=== PATIENT | female | born 1990 | race Caucasian/White ===

== ENCOUNTER → 2016-07-09 | Outpatient (CLI) | payer BC, OTHER ==
--- NOTE | 2016-07-09 13:55 | US ---
EXAMINATION TYPE: US transvaginal DATE OF EXAM: 07/09/2016 12:41 PM COMPARISON: Prior pelvic ultrasound June 12, 2015 CLINICAL HISTORY: Pelvic Pain R10.2. RLQ pain x 1.5 months since egg retrieval for donor egg procedur e (has had 3 done); TECHNIQUE: Transvaginal (TV) Date of LMP: 07/01/2016 EXAM MEASUREMENTS: Uterus: 7.3cm Endometrial Stripe: 0.6 cm Right Ovary: 4.0 x 2.5 x 2.3 cm Left Ovary: 4.0 x 2.1 x 2.3 cm 1. Uterus: Anteverted wnl 2. Endometrium: IUD noted mid upper location to TOMMIE and thickness is wnl for Day 8 LMP 3. Right Ovary: multiple follicles with largest as complex cyst = 1.7 x 1.6 x 1.3cm 4. Left Ovary: multiple small follicles Spectral, color and waveform Doppler imaging shows good arterial and venous flow within the ovaries ; there is no evidence for ovarian torsion. 5. Bilateral Adnexa: wnl 6. Posterior cul-de-sac: small amount of free fluid is noted = 0.9 x 2.8 x 0.3 x 0.523 = 0.4ml (wnl as is < 10ml). New metallic IUD is slightly lower in position in the lower uterine segment extending into cervix on initial images. Tiny amount of free fluid is seen in the pelvic cul-de-sac on image 11 and 12. Both ovaries are identified. There are scattered peripheral follicles seen throughout both ovaries. W ithin right ovary there is more complex cystic lesion measuring 1.7 x 1.3 x 1.6 cm that has central i rregular hyperechoic material but no suspicious vascularity. IMPRESSION: New central metallic IUD is noted low in position. There is nonspecific small amount of f ree fluid in the pelvic cul-de-sac. There is 1.7 cm nonsimple cyst in the right ovary, probable hemor rhagic cyst, short-term ultrasound follow-up in 6 weeks' time is advised to further evaluate and magaly acterize.
== END | disposition home or self-care (01) ==
LOC: RADUSWWP 12:16
PROVIDERS: ATTEND Family Medicine
DX: N83.201 Unspecified ovarian cyst, right side (principal); Z97.5 Presence of (intrauterine) contraceptive device
CPT/HCPCS: 76830

== ENCOUNTER → 2016-08-03 | Outpatient (CLI) | payer BC, OTHER ==
--- NOTE | 2016-08-03 08:19 | US ---
EXAMINATION TYPE: US abdomen complete DATE OF EXAM: 08/03/2016 7:29 AM COMPARISON: NONE CLINICAL HISTORY: 25-year-old female with right Flank Pain R10.9. TECHNIQUE: Multiple sonographic images of the abdomen were obtained. FINDINGS: Liver Length: 14.7 cm Gallbladder Wall: 0.2 cm CBD: 0.3 cm Spleen: 10.7 cm Right Kidney: 9.0 x 3.8 x 4.3 cm Left Kidney: 9.7 x 4.3 x 4.6 cm Pancreas: Within normal limits. Liver: Normal size with homogeneous echotexture and no focal lesion. Gallbladder: No abnormal gallbladder distention, wall thickening, pericholecystic fluid, or shadowin g calculi. There is a 3 mm nonmobile mural-based echogenic focus along the posterior gallbladder wall probably a small polyp. Evidence for sonographic Boyle's sign: no CBD: Within normal limits. Spleen: Normal size with a 1.4 cm hilar splenule. Right Kidney: no evidence of hydronephrosis. Left Kidney: no evidence of hydronephrosis. Upper IVC: wnl Abd Aorta: wnl IMPRESSION: 1. A 3 mm nonmobile echogenic focus along the posterior gallbladder wall. A tiny gallbladder wall latricia yp is suggested. A 6-12 month follow-up gallbladder ultrasound can reassess. 2. Otherwise, unremarkable sonographic examination of the abdomen.
== END | disposition home or self-care (01) ==
LOC: RADUSWWP 07:01
PROVIDERS: ATTEND Family Medicine
DX: R10.9 Unspecified abdominal pain (principal)
CPT/HCPCS: 76700

== ENCOUNTER → 2016-08-20 | Outpatient (CLI) | payer BC, OTHER ==
--- NOTE | 2016-08-20 10:09 | NM ---
EXAMINATION TYPE: NM hepatobiliary w EF DATE OF EXAM: 08/20/2016 9:30 AM COMPARISON: NONE HISTORY: Right upper quadrant pain TECHNIQUE: After the intravenous administration of 5.3 mCi Tc 99m Mebrofenin hepatobiliary scintigrap hy is performed. Immediate images post injection. FINDINGS: There is satisfactory initial accumulation of tracer by the liver. The gallbladder is visualized wit hin 6 minutes. The small bowel activity is noted within 14 minutes. At one hour 8 ounces of oral en sure plus is given to mimic CCK and gallbladder ejection fraction is calculated at 62 %, in the yasmin l range. Therefore there is no scintigraphic evidence of cystic or common bile duct obstruction to s uggest acute cholecystitis or gallbladder dyskinesia. IMPRESSION: Exam is within normal limits.
== END | disposition home or self-care (01) ==
LOC: RADNMMAIN 07:02
PROVIDERS: ATTEND Family Medicine
DX: R10.11 Right upper quadrant pain (principal)
CPT/HCPCS: 78226; A9537

== ENCOUNTER 2016-12-03 18:49 | Emergency (ER) | payer BC, OTHER ==
[2016-12-03 19:45] LABS: Appearance,Urine Clear (Clear); Bilirubin,Urine Negative (Negative); Glucose,Urine (UA) Negative (Negative); Ketones,Urine Negative (Negative); Leukocyte Esterase,Urine Negative (Negative); Nitrite,Urine Negative (Negative); Protein,Urine Trace (Negative); Specific Gravity,Urine 1.019 (1.001-1.035); UA Billing (MACRO vs. MICRO) CHEM; Urobilinogen,Urine <2.0 mg/dL (<2.0)
--- NOTE | 2016-12-03 20:03 | US ---
EXAMINATION TYPE: US transvaginal DATE OF EXAM: 12/03/2016 COMPARISON: Prior in [facility] CLINICAL HISTORY: Pain. Patient has IUD, could not feel strings. Patient is an egg donor TECHNIQUE: Transvaginal (TV) Date of LMP: Unsure EXAM MEASUREMENTS: Uterus: 7.0 x 3.2 x 4.8 cm Endometrial Stripe: 0.6 cm Right Ovary: 3.7 x 2.1 x 2.1 cm Left Ovary: 3.8 x 2.5 x 2.0 cm 1. Uterus: Anteverted wnl 2. Endometrium: wnl, IUD is visualized in the low position as seen on previous exam 3. Right Ovary: Multiple follicles visualized 4. Left Ovary: Multiple follicles visualized, largest measuring 1.6 x 1.3 x 1.2 cm Spectral, color and waveform doppler imaging shows good arterial and venous flow within the ovaries ; there is no evidence for ovarian torsion. 5. Bilateral Adnexa: wnl 6. Posterior cul-de-sac: wnl IMPRESSION: The IUD is in the mid and lower uterus and not in optimal position.
--- NOTE | 2016-12-03 20:17 | ED ---
Female Urogenital HPI - General Chief complaint: Urogenital Stated complaint: vaginal problems Source: patient Mode of arrival: ambulatory Limitations: no limitations - History of Present Illness Initial comments: Patient is a 25-year-old female who presents for evaluation for "cannot find IUD strings ". Past history as below. Patient states that she's had this IUD in for the past year. Stated that she was having some lower pelvic cramping today while at work. She stated it was uncomfortable for her to sit down. She was having some light vaginal spotting which is not atypical for her. No urinary symptoms. She took a home urine test which was negative. Called her OB and stated that she can't get her in until month and a half from now. She has a history of her IUD falling out. Concerned that the IUD might be in an abnormal position since she has a history of it falling out. Denies any other associated symptoms. She is sexually active and her partner wears protection. She's also on control. Denies fever, chills, headache and changes of vision, URI symptoms, shortness of breath, cough, chest pain, nausea or vomiting, diarrhea, pain or burning with urination. - Related Data Allergies Allergy/AdvReac Type Severity Reaction Status Date / Time No Known Allergies Allergy Verified 12/03/16 18:56 Review of Systems ROS Statement: Those systems with pertinent positive or pertinent negative responses have been documented in the HPI. ROS Other: All systems not noted in ROS Statement are negative. Past Medical History Past Medical History: No Reported History History of Any Multi-Drug Resistant Organisms: None Reported Past Surgical History: No Surgical Hx Reported Past Psychological History: No Psychological Hx Reported Smoking Status: Never smoker Past Alcohol Use History: Occasional Past Drug Use History: None Reported General Exam Limitations: no limitations General appearance: alert, in no apparent distress Head exam: Present: atraumatic, normocephalic, normal inspection Eye exam: Present: normal appearance, PERRL, EOMI. Absent: scleral icterus, conjunctival injection, periorbital swelling ENT exam: Present: normal exam, mucous membranes moist Neck exam: Present: normal inspection. Absent: tenderness, meningismus, lymphadenopathy Respiratory exam: Present: normal lung sounds bilaterally. Absent: respiratory distress, wheezes, rales, rhonchi, stridor Cardiovascular Exam: Present: regular rate, normal rhythm, normal heart sounds. Absent: systolic murmur, diastolic murmur, rubs, gallop, clicks GI/Abdominal exam: Present: soft, normal bowel sounds, other (Abdomen is soft and nontender. No peritoneal signs. Negative McBurney sign. No suprapubic tenderness.). Absent: distended, tenderness, guarding, rebound, rigid Extremities exam: Present: normal inspection, full ROM, normal capillary refill. Absent: tenderness, pedal edema, joint swelling, calf tenderness Back exam: Present: normal inspection Neurological exam: Present: alert, oriented X3, CN II-XII intact Psychiatric exam: Present: normal affect, normal mood Skin exam: Present: warm, dry, intact, normal color. Absent: rash Course Vital Signs 12/03/16 18:54 Temperature 99.5 F Pulse Rate 95 Respiratory 20 Rate Blood Pressure 151/98 O2 Sat by Pulse 100 Oximetry Medical Decision Making - Medical Decision Making Patient is a 25-year-old female resents for evaluation for concern for IUD falling out. Offered pelvic examination which she deferred. We'll order a urinalysis and a transvaginal ultrasound. Does not want anything for pain at this time. 2010: Urinalysis negative for UTI. Ultrasound revealed the IUD in appropriate position. Discussed with the patient. Offered pelvic examination again which she refused. 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 NSAIDs as needed for pain. Discussed specific signs and symptoms on when to return to the emergency department for further evaluation. Worse understanding. Comfortable discharge home and will follow-up. - Lab Data Lab Results 12/03/16 Range/Units 19:25 Urine Color Yellow Urine Appearance Clear (Clear) Urine pH 6.0 (5.0-8.0) Ur Specific [place] 1.019 (1.001-1.035) Urine Protein Trace H (Negative) Urine Glucose (UA) Negative (Negative) Urine Ketones Negative (Negative) Urine Blood Negative (Negative) Urine Nitrite Negative (Negative) Urine Bilirubin Negative (Negative) Urine Urobilinogen <2.0 (<2.0) mg/dL Ur Leukocyte Esterase Negative (Negative) Disposition Clinical Impression: Pelvic pain Disposition: HOME SELF-CARE Condition: Good Instructions: Pelvic Pain in Women (ED) Referrals: Maximino Gonzalez MD [Primary Care Provider] - 1-2 days
[2016-12-03 20:29] VITALS: BP 132/85; PULSE 89; RESP 18; TEMP 98
== END 2016-12-03 20:28 | disposition home or self-care (01) ==
LOC: EC 18:49
DX: R10.2 Pelvic and perineal pain (principal); N92.0 Excessive and frequent menstruation with regular cycle; Z97.5 Presence of (intrauterine) contraceptive device
CPT/HCPCS: 76830; 81003; 93975; 99284

== ENCOUNTER 2020-02-09 10:17 | Emergency (ER) | payer MEDICAID, OTHER ==
[2020-02-09 10:54] LABS: Basophils % (A) 1 %; Eosinophils # (A) 0.1 k/uL (0-0.7); Eosinophils % (A) 2 %; HCT 42.4 % (34.0-46.0); HGB 14.3 gm/dL (11.4-16.0); Lymphocytes # (A) 1.2 k/uL (1.0-4.8); Lymphocytes % (A) 29 %; MCH 32.1 pg (25.0-35.0); MCHC 33.7 g/dL (31.0-37.0); MCV 95.3 fL (80.0-100.0); Mean Platelet Volume 8.3; Monocytes # (A) 0.3 k/uL (0-1.0); Monocytes % (A) 7 %; Neutrophils # (A) 2.4 k/uL (1.3-7.7); Neutrophils % (A) 58 %; Platelet Count 193 k/uL (150-450); RBC 4.45 m/uL (3.80-5.40); RDW 12.3 % (11.5-15.5); WBC 4.1 k/uL (3.8-10.6)
[2020-02-09 11:03] LABS: ALT 36 U/L (4-34); AST 36 U/L (14-36); African American GFR (CKD) >90 (>60 ml/min/1.73 sqM); Albumin 4.6 g/dL (3.5-5.0); Alkaline Phosphatase 50 U/L (38-126); Anion Gap 8 mmol/L; Blood Urea Nitrogen 12 mg/dL (7-17); Calcium 9.5 mg/dL (8.4-10.2); Carbon Dioxide 24 mmol/L (22-30); Chloride 105 mmol/L (98-107); Glucose 90 mg/dL (74-99); Non-African American GFR(CKD) >90 (>60 ml/min/1.73 sqM); Sodium 137 mmol/L (137-145); Total Bilirubin 0.6 mg/dL (0.2-1.3)
[2020-02-09 11:15] LABS: Appearance,Urine Cloudy (Clear); Bacteria,Urine Rare /hpf; Bilirubin,Urine Negative (Negative); Blood,Urine Negative (Negative); Color,Urine Yellow; Glucose,Urine (UA) Negative (Negative); Ketones,Urine Negative (Negative); Leukocyte Esterase,Urine Small (Negative); Mucus,Urine Moderate /hpf; Nitrite,Urine Negative (Negative); Protein,Urine 1+ (Negative); Specific Gravity,Urine 1.029 (1.001-1.035); Squamous Epithelial Cell,Urine 17 /hpf (0-4); Urobilinogen,Urine <2.0 mg/dL (<2.0); WBC,Urine 4 /hpf (0-5)
--- NOTE | 2020-02-09 11:43 | US ---
EXAMINATION TYPE: US transvaginal plus Doppler DATE OF EXAM: 02/09/2020 COMPARISON: 12/03/16 CLINICAL HISTORY: 29-year-old female left inguinal pain. LLQ pain and back pain. Spotting 2 weeks ago , not a normal period. History of egg donor TECHNIQUE: Transvaginal sonographic images of the pelvis were medically necessary to better assess th e anatomy. Color Doppler spectral waveform analysis of the ovarian arteries and veins. Date of LMP: 12/23/2019 FINDINGS: EXAM MEASUREMENTS: Uterus: 8.4 x 5.6 x 3.6 cm Endometrial Stripe: 0.3 cm Right Ovary: 3.5 x 2.6 x 1.9 cm Left Ovary: 4.2 x 2.6 x 2.3 cm 1. Uterus: Anteverted and otherwise wnl 2. Endometrium: wnl, miniscule hypoechoic areas within, possible early hemorrhagic debris 3. Right Ovary: wnl, follicles present 4. Left Ovary: with cyst = 2.9 x 2.1 x 1.8 cm Spectral, color and waveform doppler imaging shows good arterial and venous flow within the ovaries ; there is no evidence for ovarian torsion. 5. Bilateral Adnexa: wnl 6. Posterior cul-de-sac: Mild free fluid IMPRESSION: 1. No sonographic evidence for ovarian torsion. 2. A 2.9 cm dominant follicle or functional cyst in the left ovary. 3. Mild cul-de-sac free fluid likely physiologic.
--- NOTE | 2020-02-09 12:13 | ED ---
General Adult HPI - General Chief complaint: Abdominal Pain Stated complaint: ABD Time Seen by Provider: 02/09/20 10:31 Source: patient, RN notes reviewed, old records reviewed Mode of arrival: ambulatory Limitations: no limitations - History of Present Illness Initial comments: 29-year-old female patient ED for evaluation. Patient reports that she does have history of a lump donation. Left had in November. She reports that last 5 days she has been having some left adnexal discomfort. Reports that she had just very light spotting during her normal time of menses about 2 weeks ago. Denies as she recently took a negative test yesterday. Denies any other complaints. Systemic: Pt denies fatigue, fever/chills, rash. Pt denies weakness, night sweats, weight loss. Neuro: Pt denies headache, visual disturbances, syncope or pre-syncope. HEENT: Pt denies ocular discharge or irritation, otalgia, rhinorrhea, pharyngit is or notable lymphadenopathy. Cardiopulmonary: Pt denies chest pain, SOB, heart palpitations, dyspnea on exertion. Abdominal/GI: Pt denies abdominal pain, n/v/d. : Pt denies dysuria, burning w/ urination, frequency/urgency. Denies new onset urinary or bowel incontinence. MSK: Pt denies myalgia, loss of strength or function in extremities. Neuro: Pt denies new onset weakness, paresthesias. - Related Data Allergies Allergy/AdvReac Type Severity Reaction Status Date / Time No Known Allergies Allergy Verified 02/09/20 10:22 Review of Systems ROS Statement: Those systems with pertinent positive or pertinent negative responses have been documented in the HPI. ROS Other: All systems not noted in ROS Statement are negative. Past Medical History Past Medical History: No Reported History History of Any Multi-Drug Resistant Organisms: None Reported Past Surgical History: No Surgical Hx Reported Additional Past Surgical History / Comment(s): ovum donation x 7 Past Psychological History: No Psychological Hx Reported Smoking Status: Never smoker Past Alcohol Use History: Occasional Past Drug Use History: None Reported General Exam - General Exam Comments Initial Comments: Constitutional: NAD, AOX3, Pt has pleasant affect. HEENT: NC/AT, trachea midline, neck supple, no lymphadenopathy. External ears appear normal, without discharge. Mucous membranes moist. Eyes PERRLA, EOM intact. There is no scleral icterus. No pallor noted. Cardiopulmonary: RRR, no murmurs, rubs or gallops, no JVD noted. Lungs CTAB in anterior and posterior becker. No peripheral edema. Abdominal exam: Abdomen soft and non-distended. Abdomen non-tender to palpation in all 4 quadrants. Left lower adnexal region mildly tender to palpation. Bowel sounds active in LLQ. No hepatosplenomegaly. No ecchymosis Neuro: CN II-XII grossly intact. No nuchal rigidity. MSK: Full active ROM in upper and lower extremities, 5/5 stregnth. Limitations: no limitations Course Vital Signs 02/09/20 02/09/20 10:23 12:30 Temperature 98.1 F 98.2 F Pulse Rate 100 83 Respiratory 18 16 Rate Blood Pressure 150/96 112/65 O2 Sat by Pulse 99 98 Oximetry Medical Decision Making - Medical Decision Making 29-year-old female patient ED for left lower adnexal discomfort. Reports that she does have history of egg donation. Mild tenderness on palpation. Hcg negative, laboratory investigations nonimpressive. US displays no evidence for torsion. 2.9 cm folicle or functional cyst left ovary. Patient is stable for discharge with outpatient follow up and return precautions. Case discussed with Dr. Ortega. - Lab Data Result diagrams: 02/09/20 10:47 02/09/20 10:47 Lab Results 02/09/20 02/09/20 02/09/20 Range/Units 10:38 10:38 10:47 WBC 4.1 (3.8-10.6) k/uL RBC 4.45 (3.80-5.40) m/uL Hgb 14.3 (11.4-16.0) gm/dL Hct 42.4 (34.0-46.0) % MCV 95.3 (80.0-100.0) fL MCH 32.1 (25.0-35.0) pg MCHC 33.7 (31.0-37.0) g/dL RDW 12.3 (11.5-15.5) % Plt Count 193 (150-450) k/uL Neutrophils % 58 % Lymphocytes % 29 % Monocytes % 7 % Eosinophils % 2 % Basophils % 1 % Neutrophils # 2.4 (1.3-7.7) k/uL Lymphocytes # 1.2 (1.0-4.8) k/uL Monocytes # 0.3 (0-1.0) k/uL Eosinophils # 0.1 (0-0.7) k/uL Basophils # 0.0 (0-0.2) k/uL Sodium (137-145) mmol/L Potassium (3.5-5.1) mmol/L Chloride (98-107) mmol/L Carbon Dioxide (22-30) mmol/L Anion Gap mmol/L BUN (7-17) mg/dL Creatinine (0.52-1.04) mg/dL Est GFR (CKD-EPI)AfAm (>60 ml/min/1.73 sqM) Est GFR (CKD-EPI)NonAf (>60 ml/min/1.73 sqM) Glucose (74-99) mg/dL Calcium (8.4-10.2) mg/dL Total Bilirubin (0.2-1.3) mg/dL AST (14-36) U/L ALT (4-34) U/L Alkaline Phosphatase (38-126) U/L Total Protein (6.3-8.2) g/dL Albumin (3.5-5.0) g/dL Lipase (23-300) U/L Urine Color Yellow Urine Appearance Cloudy H (Clear) Urine pH 6.0 (5.0-8.0) Ur Specific [place] 1.029 (1.001-1.035) Urine Protein 1+ H (Negative) Urine Glucose (UA) Negative (Negative) Urine Ketones Negative (Negative) Urine Blood Negative (Negative) Urine Nitrite Negative (Negative) Urine Bilirubin Negative (Negative) Urine Urobilinogen <2.0 (<2.0) mg/dL Ur Leukocyte Esterase Small H (Negative) Urine WBC 4 (0-5) /hpf Ur Squamous Epith Cells 17 H (0-4) /hpf Urine Bacteria Rare H (None) /hpf Urine Mucus Moderate H (None) /hpf Urine HCG, Qual Not Detected (Not Detectd) 02/09/20 Range/Units 10:47 WBC (3.8-10.6) k/uL RBC (3.80-5.40) m/uL Hgb (11.4-16.0) gm/dL Hct (34.0-46.0) % MCV (80.0-100.0) fL MCH (25.0-35.0) pg MCHC (31.0-37.0) g/dL RDW (11.5-15.5) % Plt Count (150-450) k/uL Neutrophils % % Lymphocytes % % Monocytes % % Eosinophils % % Basophils % % Neutrophils # (1.3-7.7) k/uL Lymphocytes # (1.0-4.8) k/uL Monocytes # (0-1.0) k/uL Eosinophils # (0-0.7) k/uL Basophils # (0-0.2) k/uL Sodium 137 (137-145) mmol/L Potassium 4.0 (3.5-5.1) mmol/L Chloride 105 (98-107) mmol/L Carbon Dioxide 24 (22-30) mmol/L Anion Gap 8 mmol/L BUN 12 (7-17) mg/dL Creatinine 0.88 (0.52-1.04) mg/dL Est GFR (CKD-EPI)AfAm >90 (>60 ml/min/1.73 sqM) Est GFR (CKD-EPI)NonAf >90 (>60 ml/min/1.73 sqM) Glucose 90 (74-99) mg/dL Calcium 9.5 (8.4-10.2) mg/dL Total Bilirubin 0.6 (0.2-1.3) mg/dL AST 36 (14-36) U/L ALT 36 H (4-34) U/L Alkaline Phosphatase 50 (38-126) U/L Total Protein 8.0 (6.3-8.2) g/dL Albumin 4.6 (3.5-5.0) g/dL Lipase 150 (23-300) U/L Urine Color Urine Appearance (Clear) Urine pH (5.0-8.0) Ur Specific [place] (1.001-1.035) Urine Protein (Negative) Urine Glucose (UA) (Negative) Urine Ketones (Negative) Urine Blood (Negative) Urine Nitrite (Negative) Urine Bilirubin (Negative) Urine Urobilinogen (<2.0) mg/dL Ur Leukocyte Esterase (Negative) Urine WBC (0-5) /hpf Ur Squamous Epith Cells (0-4) /hpf Urine Bacteria (None) /hpf Urine Mucus (None) /hpf Urine HCG, Qual (Not Detectd) Disposition Clinical Impression: Ovarian cyst Disposition: HOME SELF-CARE Condition: Stable Instructions (If sedation given, give patient instructions): Ovarian Cyst (ED) Additional Instructions: Follow up with PCP and HOSPICE CASE MANAGER tomorrow. Return to ED with any worsening symptoms. Is patient prescribed a controlled substance at d/c from ED?: No Referrals: Maximino Gonzalez MD [Primary Care Provider] - 1-2 days
[2020-02-09 12:33] VITALS: BP 112/65; PULSE 83; RESP 16; TEMP 98.2
== END 2020-02-09 12:30 | disposition home or self-care (01) ==
LOC: EC 10:17
DX: N83.202 Unspecified ovarian cyst, left side (principal)
CPT/HCPCS: 36415; 76830; 80053; 81001; 81025; 83690; 85025; 93975; 99284

== ENCOUNTER 2022-07-05 12:38 | Emergency (ER) | payer OTHER ==
[2022-07-05] MEDS ORDERED: METOCLOPRAMIDE 5 MG/ML 2 ML VIAL IVP STA (13:04)
[2022-07-05] MEDS ORDERED: SODIUM CHLORIDE 0.9% 2,000 ML IV STA (13:04)
[2022-07-05] MEDS ORDERED: diphenhydrAMINE 50 MG/ML 1 ML VIAL IVP STA (13:04)
[2022-07-05 13:31] LABS: Basophils % (A) 0 %; Eosinophils # (A) 0.1 k/uL (0-0.7); Eosinophils % (A) 1 %; HCT 36.1 % (34.0-46.0); HGB 12.5 gm/dL (11.4-16.0); Lymphocytes # (A) 0.3 k/uL (1.0-4.8); Lymphocytes % (A) 4 %; MCH 32.7 pg (25.0-35.0); MCHC 34.5 g/dL (31.0-37.0); MCV 94.6 fL (80.0-100.0); Mean Platelet Volume 8.3; Monocytes # (A) 0.3 k/uL (0-1.0); Monocytes % (A) 4 %; Neutrophils # (A) 8.2 k/uL (1.3-7.7); Neutrophils % (A) 91 %; Platelet Count 190 k/uL (150-450); RBC 3.82 m/uL (3.80-5.40); RDW 12.9 % (11.5-15.5)
[2022-07-05 13:41] LABS: ALT 22 U/L (4-34); AST 25 U/L (14-36); African American GFR (CKD) >90 (>60 ml/min/1.73 sqM); Albumin 3.7 g/dL (3.5-5.0); Alkaline Phosphatase 51 U/L (38-126); Amylase 136 U/L (30-110); Anion Gap 4 mmol/L; Blood Urea Nitrogen 10 mg/dL (7-17); Calcium 8.1 mg/dL (8.4-10.2); Carbon Dioxide 24 mmol/L (22-30); Chloride 106 mmol/L (98-107); Glucose 84 mg/dL (74-99); Lipase 283 U/L (23-300); Non-African American GFR(CKD) >90 (>60 ml/min/1.73 sqM); Potassium 4.1 mmol/L (3.5-5.1); Sodium 134 mmol/L (137-145); Total Bilirubin 0.5 mg/dL (0.2-1.3)
--- NOTE | 2022-07-05 13:53 | ED ---
Abdominal Pain HPI - General Chief Complaint: Abdominal Pain Stated Complaint: NVD Time Seen by Provider: 07/05/22 12:55 Source: patient, EMS, RN notes reviewed Mode of arrival: EMS Limitations: no limitations - History of Present Illness Initial Comments: This is a 31-year-old female who presents to the emergency department for abdominal pain, nausea, vomiting, and diarrhea. Patient is 22 weeks and . 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 She states that since this morning, she has not been able to keep anything down and has vomiting with associated diarrhea. Denies any sick contacts or trying any new foods. She is also experiencing pain in the upper and lower abdomen as well as the mid back. Denies any vaginal bleeding or discharge. She has had decreased movement since this started. Denies any fevers, chills, sore throat, cough, dyspnea, chest pain, palpitations, or headaches. MD Complaint: abdominal pain Associated Symptoms: nausea, vomiting, diarrhea - Related Data Home Medications Medication Instructions Recorded Confirmed Aspirin EC [Ecotrin Low Dose] 81 mg PO DAILY 07/05/22 07/05/22 NIFEdipine [Adalat CC] 30 mg PO DAILY 07/05/22 07/05/22 [id number] Acid 1 cap PO DAILY 07/05/22 07/05/22 [-U Capsule (formulary)] Previous Rx's Medication Instructions Recorded Ondansetron Odt [Zofran Odt] 4 mg PO Q8HR PRN #15 tab 07/05/22 Allergies Allergy/AdvReac Type Severity Reaction Status Date / Time No Known Allergies Allergy Verified 07/05/22 13:42 Review of Systems ROS Statement: Those systems with pertinent positive or pertinent negative responses have been documented in the HPI. ROS Other: All systems not noted in ROS Statement are negative. Past Medical History Past Medical History: No Reported History History of Any Multi-Drug Resistant Organisms: None Reported Past Surgical History: No Surgical Hx Reported Additional Past Surgical History / Comment(s): ovum donation x 7 Past Psychological History: No Psychological Hx Reported Smoking Status: Never smoker Past Alcohol Use History: Occasional Past Drug Use History: None Reported General Exam Limitations: no limitations General appearance: alert, in no apparent distress Head exam: Present: atraumatic, normocephalic, normal inspection Respiratory exam: Present: normal lung sounds bilaterally. Absent: respiratory distress, wheezes, rales, rhonchi, stridor Cardiovascular Exam: Present: regular rate, normal rhythm, normal heart sounds. Absent: systolic murmur, diastolic murmur, rubs, gallop, clicks Neurological exam: Present: alert, oriented X3, CN II-XII intact Psychiatric exam: Present: normal affect, normal mood Skin exam: Present: warm, dry, intact, normal color. Absent: rash Course Vital Signs 07/05/22 07/05/22 12:49 15:34 Temperature 98.8 F 98.2 F Pulse Rate 119 H 100 Respiratory 18 19 Rate Blood Pressure 132/83 120/80 O2 Sat by Pulse 100 Oximetry Medical Decision Making - Medical Decision Making This is a 31-year-old female who presents to the emergency department for abdominal pain, nausea, and vomiting in . Was pt. sent in by a medical professional or institution? @ -No Did you speak to anyone other than the patient for history? @ -No Did you review nursing and triage notes? @ -Yes, and I agree, it is accurate with regards to the patient's symptoms. Were old charts reviewed? @ -No Differential Diagnosis? @ -Differential Nausea and Vomiting: Gastroenteritis, cholecystitis, appendicitis, pancreatitis, migraine, benign positional vertigo, food borne illness, pyelonephritis, irritable bowel syndrome, influenza, Covid, GERD, incarcerated hernia, intestinal obstruction, this is not meant to be an all-inclusive list. What testing was considered but not performed? (CT, X-rays, U/S, labs)? Why? @ -None What meds were considered but not given? Why? @ -None Did you discuss the management of the patient with other professionals? @ -No Did you reconcile home meds? @ -No Was smoking cessation discussed for >3mins.? @ -No Was critical care preformed (if so, how long)? @ -No Were there social determinants of health that impacted care today? How? (Homelessness, low income, unemployed, alcoholism, drug addiction, transportation, low edu. Level, literacy, decrease access to med. care, skilled nursing, rehab)? @ -No Was there de-escalation of care discussed even if they declined? (Discuss DNR or withdrawal of care, Hospice)? @ -No What co-morbidities impacted this encounter? (DM, HTN, Smoking, COPD, CAD, Cancer, CVA, Hep., AIDS, mental health diagnosis, sleep apnea, morbid obesity)? @ - Was patient admitted / discharged? @ -Discharged. Lab work obtained and found to be nonactionable. Urinalysis negative for signs of infection. Patient was given IV fluids, Zofran, and Benadryl with resolution of symptoms. She was able to drink water without difficulty afterwards. ultrasound obtained confirming the single live intrauterine with a heart rate of 140 beats per minute. No anomalies were identified on the ultrasound. When discussing nausea medications for discharge, we discussed that Zofran is a category B medication in , meaning that more testing is indicated to determine how safe this may or may not be in and it has not been in any well-controlled studies to determine this. However, no direct link to harm has been definitively identified. Patient expresses understanding and wishes to proceed. Prescription for Zofran provided with dosing instructions reviewed. Otherwise advised she remain well- hydrated and follow up with her [employer]ACHINE [employer]ER. Undiagnosed new problem with uncertain prognosis? @ -None Drug Therapy requiring intensive monitoring for toxicity (Heparin, Nitro, Insulin, Cardizem)? @ -None Were any procedures done? @ -None Diagnosis/symptom? @ -Nausea and vomiting in Acute, or Chronic, or Acute on Chronic? @ -Acute Uncomplicated (without systemic symptoms) or Complicated (systemic symptoms)? @ -Uncomplicated Side effects of treatment? @ -None Exacerbation, Progression, or Severe Exacerbation] @ -Not applicable Poses a threat to life or bodily function? @ -No Return precautions reviewed in depth, the patient is instructed to return to the emergency department with any new, worsening, or concerning symptoms. Patient verbalized understanding. This case was discussed in detail with the attending ED physician, Dr. Berlin cleaning. Presentation, findings, and treatment plan discussed in detail as well. - Lab Data Result diagrams: 07/05/22 13:19 07/05/22 13: Lab Results 07/05/22 07/05/22 07/05/22 Range/Units 13:19 13:19 13: WBC 9.0 (3.8-10.6) k/uL RBC 3.82 (3.80-5.40) m/uL Hgb 12.5 (11.4-16.0) gm/dL Hct 36.1 (34.0-46.0) % MCV 94.6 (80.0-100.0) fL MCH 32.7 (25.0-35.0) pg MCHC 34.5 (31.0-37.0) g/dL RDW 12.9 (11.5-15.5) % Plt Count 190 (150-450) k/uL MPV 8.3 Neutrophils % 91 % Lymphocytes % 4 % Monocytes % 4 % Eosinophils % 1 % Basophils % 0 % Neutrophils # 8.2 H (1.3-7.7) k/uL Lymphocytes # 0.3 L (1.0-4.8) k/uL Monocytes # 0.3 (0-1.0) k/uL Eosinophils # 0.1 (0-0.7) k/uL Basophils # 0.0 (0-0.2) k/uL Sodium 134 L (137-145) mmol/L Potassium 4.1 (3.5-5.1) mmol/L Chloride 106 (98-107) mmol/L Carbon Dioxide 24 (22-30) mmol/L Anion Gap 4 mmol/L BUN 10 (7-17) mg/dL Creatinine 0.60 (0.52-1.04) mg/dL Est GFR (CKD-EPI)AfAm >90 (>60 ml/min/1.73 sqM) Est GFR (CKD-EPI)NonAf >90 (>60 ml/min/1.73 sqM) Glucose 84 (74-99) mg/dL Calcium 8.1 L (8.4-10.2) mg/dL Total Bilirubin 0.5 (0.2-1.3) mg/dL AST 25 (14-36) U/L ALT 22 (4-34) U/L Alkaline Phosphatase 51 (38-126) U/L Total Protein 7.0 (6.3-8.2) g/dL Albumin 3.7 (3.5-5.0) g/dL Amylase 136 H (30-110) U/L Lipase 283 (23-300) U/L HCG, Quant 97077.5 mIU/mL Urine Color Yellow Urine Appearance Clear (Clear) Urine pH 7.0 (5.0-8.0) Ur Specific [place] 1.017 (1.001-1.035) Urine Protein Trace H (Negative) Urine Glucose (UA) Negative (Negative) Urine Ketones 1+ H (Negative) Urine Blood Negative (Negative) Urine Nitrite Negative (Negative) Urine Bilirubin Negative (Negative) Urine Urobilinogen <2.0 (<2.0) mg/dL Ur Leukocyte Esterase Negative (Negative) - Radiology Data Radiology results: report reviewed, image reviewed Disposition Clinical Impression: Nausea and vomiting during Disposition: HOME SELF-CARE Instructions (If sedation given, give patient instructions): Nausea and Vomiting in (ED) Additional Instructions: Return to the emergency department with any new, worsening, or concerning symptoms. You can take the Zofran up to every 8 hours as needed for nausea and vomiting. Only take Tylenol if needed for pain. Contact your actuarial mathematician and let them know that you were seen in the emergency department and see if they would like you to make a sooner appointment. Prescriptions: Ondansetron Odt [Zofran Odt] 4 mg PO Q8HR PRN #15 tab PRN Reason: Nausea And Vomiting Is patient prescribed a controlled substance at d/c from ED?: No Referrals: Maximino Gonzalez MD [Primary Care Provider] - 1-2 days
--- NOTE | 2022-07-05 14:28 | US ---
EXAMINATION TYPE: US OB >= 14 wk fetus DATE OF EXAM: 07/05/2022 COMPARISON: None CLINICAL HISTORY: Abdominal pain, decreased movement Per patient, she doesn't feel the baby mo ve as normally. TECHNIQUE: Transabdominal (TA) GESTATIONAL AGE / DATING Physician Established: (22 weeks/0 days) EDC: 11/08/2022 Dates by Current Scan: (22 weeks/2 days) EDC: 11/06/2022 Beta HCG (if available): Not available at this time SURVEY IUP: Single PLACENTA: Anterior PREVIA: No Previa FRANCESCO: 18.0 cm Upper limits of normal CERVICAL LENGTH (transabdominal: norm > 3.0cm): 3.6 cm BIOMETRY LIE: Transverse with head maternal Right BPD: 5.2 cm 22 weeks / 0 days HC: 20.0 cm 22 weeks / 2 days AC: 17.5 cm 22 weeks / 3 days FL: 3.8 cm 22 weeks / 1 days ESTIMATED WEIGHT IN GRAMS: 488 grams ESTIMATED WEIGHT IN LBS/OZ: 1 lbs. 1 oz. WEIGHT PERCENTAGE BASED ON ESTABLISHED DATES: 57% HC/AC: 1.1 Normal FL/AC: 22% Normal HEART RATE: 140 bpm RHYTHM: Normal IMPRESSION: Amniotic fluid is adequate. No evidence of placenta previa or placental abruption.
[2022-07-05 14:32] LABS: HCG,Quantitative Serum 22477.5 mIU/mL
[2022-07-05] MEDS ORDERED: ONDANSETRON 4 MG ODT STARTER PACK 2 TAB BTL PO STA (14:37)
[2022-07-05 15:25] LABS: Appearance,Urine Clear (Clear); Bilirubin,Urine Negative (Negative); Blood,Urine Negative (Negative); Color,Urine Yellow; Glucose,Urine (UA) Negative (Negative); Ketones,Urine 1+ (Negative); Leukocyte Esterase,Urine Negative (Negative); Nitrite,Urine Negative (Negative); Protein,Urine Trace (Negative); Specific Gravity,Urine 1.017 (1.001-1.035); Urobilinogen,Urine <2.0 mg/dL (<2.0)
[2022-07-05 15:35] VITALS: BP 120/80; PULSE 100; RESP 19; TEMP 98.2
== END 2022-07-05 15:35 | disposition home or self-care (01) ==
LOC: EC 12:38
DX: O21.9 Vomiting of pregnancy, unspecified (principal); Z79.82 Long term (current) use of aspirin; Z3A.22 22 weeks gestation of pregnancy
CPT/HCPCS: 36415; 80053; 82150; 83690; 85025; 81003; 84702; 76805; 99284; 96374; 96375; 96361; J1200; J2765; S0119

== ENCOUNTER → 2022-08-07 | Outpatient (CLI) | payer OTHER ==
[2022-08-07 15:32] LABS: HCT 32.2 % (37.2-46.3); HGB 10.8 g/dL (12.0-15.0); MCH 32.5 pg (27.0-32.0); MCHC 33.5 g/dL (32.0-37.0); Mean Platelet Volume 11.1 fL (9.5-12.2); NRBC Per 100 WBC 0 /100 WBCS (0.0-0.0); Platelet Count 191 X 10*3/uL (140-440); RBC 3.32 X 10*6/uL (4.10-5.20); RDW 13.4 % (11.5-14.5); WBC 6.55 X 10*3/uL (4.50-10.00)
== END | disposition home or self-care (01) ==
LOC: LABWHC1 08:25
PROVIDERS: ATTEND Obstetrics & Gynecology
DX: Z36.9 Encounter for antenatal screening, unspecified (principal)
CPT/HCPCS: 36415; 82950; 85027

== ENCOUNTER → 2022-09-18 | Outpatient (CLI) | payer OTHER ==
--- NOTE | 2022-09-18 11:06 | US ---
EXAMINATION TYPE: US gallbladder DATE OF EXAM: 09/18/2022 COMPARISON: NM, US 2017 CLINICAL INDICATION: Female, 31 years old with history of R10.11 RT UPPER QUAD PAIN; RUQ pain x 3 wee ks. Patient is 32 weeks . TECHNIQUE: Multiple sonographic images of the right upper quadrant are obtained. FINDINGS: EXAM MEASUREMENTS: Liver Length: 15.8 cm Gallbladder Wall: 0.18 cm CBD: Obscured Right Kidney: 10.3 x 5.2 x 4.1 cm FLAMER SEALER NOTES: Limited due to gas. Pancreas: Tail was not well seen. Liver: No abnormalities seen. Gallbladder: Hyperechoic focus seen that appears to be attached to the gallbladder wall: 0.3 x 0.2 x 0.2 cm. Evidence for sonographic Boyle's sign: No CBD: Obscured Right Kidney: No hydronephrosis or masses seen Suboptimal study. Visualized pancreas is unremarkable. IVC seen near the hepatic dome. Visualized todd er is unremarkable. Gallbladder shows no shadowing mobile gallstones. Possible tiny polyp. No right-s ided hydronephrosis. IMPRESSION: Suboptimal study. No shadowing mobile gallstones or ultrasound evidence for acute cholecy stitis.
== END | disposition home or self-care (01) ==
LOC: RADUSWWP 09:54
PROVIDERS: ATTEND Obstetrics & Gynecology
DX: R10.11 Right upper quadrant pain (principal)
CPT/HCPCS: 76705

== ENCOUNTER 2022-09-22 11:13 | Outpatient (CLI) | payer OTHER ==
[2022-09-22 12:27] LABS: Appearance,Urine Clear (Clear); Bacteria,Urine Occasional /hpf; Bilirubin,Urine Negative (Negative); Blood,Urine Negative (Negative); Color,Urine Colorless; Glucose,Urine (UA) Negative (Negative); Ketones,Urine Negative (Negative); Leukocyte Esterase,Urine Moderate (Negative); Nitrite,Urine Negative (Negative); Protein,Urine Negative (Negative); RBC,Urine 1 /hpf (0-5); Specific Gravity,Urine 1.002 (1.001-1.035); Squamous Epithelial Cell,Urine 1 /hpf (0-4); Urobilinogen,Urine <2.0 mg/dL (<2.0); WBC,Urine 1 /hpf (0-5)
[2022-09-22 12:31] LABS: Creatinine,Urine Random 11.7 mg/dL; Creatinine,Urine Random 11.8 mg/dL; Protein/Creatinine Ratio,Urine 1.356
[2022-09-22 12:44] LABS: Basophils % (A) 0 %; Eosinophils # (A) 0.1 k/uL (0-0.7); Eosinophils % (A) 1 %; HCT 30.7 % (34.0-46.0); HGB 10.4 gm/dL (11.4-16.0); Lymphocytes # (A) 1.1 k/uL (1.0-4.8); Lymphocytes % (A) 14 %; MCH 31.7 pg (25.0-35.0); MCV 93.3 fL (80.0-100.0); Mean Platelet Volume 9.5; Monocytes # (A) 0.6 k/uL (0-1.0); Monocytes % (A) 8 %; Neutrophils # (A) 5.7 k/uL (1.3-7.7); Neutrophils % (A) 75 %; Platelet Count 221 k/uL (150-450); RBC 3.29 m/uL (3.80-5.40); RDW 12.9 % (11.5-15.5); WBC 7.7 k/uL (3.8-10.6)
[2022-09-22 12:54] LABS: ALT 17 U/L (4-34); AST 23 U/L (14-36); African American GFR (CKD) >90 (>60 ml/min/1.73 sqM); Blood Urea Nitrogen 5 mg/dL (7-17); LDH 155 U/L (120-246); Non-African American GFR(CKD) >90 (>60 ml/min/1.73 sqM); Uric Acid 4.6 mg/dL (3.7-7.4)
[2022-09-22 13:26] VITALS: BP 124/80; PULSE 115; RESP 15; TEMP 97.5
--- NOTE | 2022-10-05 13:00 | P.MSEPDOC ---
Presenting Problems - Arrival Data Date of Arrival on Unit: 09/22/22 Time of Arrival on Unit: 11:13 Mode of Transport: Ambulatory - Complaint OB-Reason for Admission/Chief Complaint: PIH Medical History - Information : 3 Para: 1 Term: 1 : 0 Number of Living Children: 1 - Gestational Age Gestational Age by HOMERO (wks/days): 33 Weeks and 2 Days - History Complications: Other Comment: Gestational HTN Review of Systems - Review of Systems Constitutional: No problems Breast: No problems ENT: No problems Cardiovascular: No problems Respiratory: No problems Gastrointestinal: No problems Genitourinary: No problems Musculoskeletal: No problems Neurological: Dizziness Skin: No problems Vital Signs - Temperature Temperature: 97.5 F Temperature Source: Temporal Artery Scan - Pulse Pulse Oximetery Pulse Rate: 115 Pulse Assessment Method: Pulse Oximetry - Respirations Respiratory Rate: 15 Oxygen Delivery Method: Room Air O2 Sat by Pulse Oximetry: 99 - Blood Pressure Right Arm Sitting Blood Pressure: 124/80 Blood Pressure Mean: 94 Blood Pressure Source: Automatic Cuff Medical Screen Scoring - Assessment - Baby A Baseline FHR: 135 Heart Rate - NICHD Category: Category I (Normal) NST: Reactive Physician Notification - Physician Notified Physician Notified Date: 09/22/22 Physician Notified Time: 12:05 Physician: Ketty Larsen Order Received: Yes - Notification Comment Comment: [facility] orders received at 1205. DC pt home orders at 1311 Maternal Triage Index - Maternal Triage Index Presenting for scheduled procedure w/no complaint: No - Stat/Priority 1 Stat Priority 1: No - Urgent/Priority 2 Urgent Priority 2: No - Prompt/Priority 3 Prompt Priority 3: Yes Criteria Met for Priority 3: pt is less than 34 wks gest with c/o dizziness and HTN. report called to OB at 1205 Disposition - Disposition OB Disposition: Physician follow up in office, Triage, Discharge to home, Written follow up instructions reviewed Discharge Date: 09/22/22 Discharge Time: 13:11 I agree with the RN Medical Screening Exam: Yes Physician's MSE Comment: I have neither seen nor examined the patient Case reviewed; plan agreed upon as documented in EMR&OBIX.: Yes Diagnosis: RELATED CONDITIONS, UNSPECIFIED, THIRD TRIMESTER
== END 2022-09-22 13:11 | disposition home or self-care (01) ==
LOC: FBPOP 11:13
PROVIDERS: ATTEND Obstetrics & Gynecology
DX: O13.3 Gestational [pregnancy-induced] hypertension without significant proteinuria, third trimester (principal); Z3A.33 33 weeks gestation of pregnancy
CPT/HCPCS: 59025; 82570; 84156; 82565; 83615; 84450; 84460; 84520; 84550; 85025; 81001; G0463; 99215

== ENCOUNTER → 2023-04-15 | Outpatient (CLI) | payer OTHER ==
--- NOTE | 2023-04-15 13:08 | XR ---
EXAMINATION TYPE: XR Hip Bilateral and AP pelvis DATE OF EXAM: 04/15/2023 10:16 AM CLINICAL INDICATION:Female, 32 years old with history of M25.552 pain L hip; [facility] COMPARISON: None. TECHNIQUE: XR Hip Bilateral and AP pelvis; hip was examined in the frontal and lateral projections an d a AP pelvis. FINDINGS: No evidence for acute process, joint dislocation or significant soft tissue swelling. Osteo phyte formation of the superior acetabulum of the hip. IMPRESSION: 1. No evidence for acute process. 2. Mild hip osteoarthrosis.
--- NOTE | 2023-04-15 13:10 | XR ---
EXAMINATION TYPE: XR lumbar spine 2 or 3V DATE OF EXAM: 04/15/2023 10:16 AM CLINICAL INDICATION:Female, 32 years old with history of M54.50 lumbar pain; [facility] COMPARISON: None TECHNIQUE: XR lumbar spine 2 or 3V - Frontal, lateral and coned in L5-S1 lateral views of the spine. FINDINGS: No evidence of any acute osseous pathology. No evidence of loss of vertebral body height i s seen. There is normal alignment of the lumbar vertebral bodies. Minimal degeneration changes throug hout the spine with osteophyte formation facet joint arthropathy. IMPRESSION: 1. No acute fracture. 2. Minimal multilevel disc degeneration.
[2023-04-15 15:08] LABS: Basophils # (A) 0.03 X 10*3/uL (0.00-0.10); Basophils % (A) 0.8 %; Eosinophils # (A) 0.09 X 10*3/uL (0.04-0.35); Eosinophils % (A) 2.4 %; HCT 39.2 % (37.2-46.3); HGB 13.1 g/dL (12.0-15.0); Lymphocytes # (A) 1.39 X 10*3/uL (0.90-5.00); Lymphocytes % (A) 36.9 %; MCH 30.8 pg (27.0-32.0); MCHC 33.4 g/dL (32.0-37.0); Monocytes # (A) 0.42 X 10*3/uL (0.20-1.00); Monocytes % (A) 11.1 %; NRBC Per 100 WBC 0 X 10*3/uL (0.00-0.01); Neutrophils # (A) 1.83 X 10*3/uL (1.80-7.70); Neutrophils % (A) 48.5 %; Platelet Count 201 X 10*3/uL (140-440); RBC 4.26 X 10*6/uL (4.10-5.20); RDW 12.5 % (11.5-14.5); WBC 3.77 X 10*3/uL (4.50-10.00)
[2023-04-15 15:34] LABS: ALT 15 U/L (8-44); AST 16 U/L (13-35); Albumin 4.3 g/dL (3.8-4.9); Albumin/Globulin Ratio 1.34 Ratio (1.60-3.17); Alkaline Phosphatase 82 U/L (41-126); BUN/Creat Ratio 10.75 Ratio (12.00-20.00); Blood Urea Nitrogen 8.6 mg/dL (9.0-27.0); Calcium 9.4 mg/dL (8.7-10.3); Carbon Dioxide 25.2 mmol/L (21.6-31.8); Chloride 106 mmol/L (96-109); Globulin 3.2 g/dL (1.6-3.3); Glucose 86 mg/dL (70-110); Potassium 4.9 mmol/L (3.5-5.5); Sodium 140 mmol/L (135-145); Total Bilirubin 0.4 mg/dL (0.3-1.2); Total Protein 7.5 g/dL (6.2-8.2)
== END | disposition home or self-care (01) ==
LOC: RADXRMAIN 09:36
PROVIDERS: ATTEND Family Medicine
DX: M16.0 Bilateral primary osteoarthritis of hip (principal); M51.36 Other intervertebral disc degeneration, lumbar region
CPT/HCPCS: 72100; 73521; 80053; 82306; 84443; 85025

== ENCOUNTER → 2023-04-16 | Outpatient (CLI) | payer OTHER ==
[2023-04-16 15:34] LABS: Chol/HDL Ratio 3.27 Ratio; LDL Cholesterol,Calculated 113.7 mg/dL (0.0-131.0); VLDL Calculation 12.74 mg/dL (5.00-40.00)
== END | disposition home or self-care (01) ==
LOC: LABWHC1 10:25
PROVIDERS: ATTEND Family Medicine
DX: Z00.01 Encounter for general adult medical examination with abnormal findings (principal); I10 Essential (primary) hypertension; E55.9 Vitamin D deficiency, unspecified
CPT/HCPCS: 36415; 80061

== ENCOUNTER → 2023-05-14 | Outpatient (CLI) | payer OTHER ==
--- NOTE | 2023-05-14 12:20 | US ---
EXAMINATION TYPE: US pelvic complete DATE OF EXAM: 05/14/2023 COMPARISON: NONE CLINICAL INDICATION: Female, 32 years old with history of R10.2 PELVIS PAIN N83.202 CYST OF OVARY; Pe lvic pain, worse on the left TECHNIQUE: Transabdominal (TA). TV not needed at this time, patient agreed to TA only Date of LMP: 04/30/23 EXAM MEASUREMENTS: Uterus: 7.0 x 4.2 x 5.7 cm Endometrial Stripe: 1.0 cm Right Ovary: 5.5 x 4.5 x 4.2 cm Left Ovary: 3.5 x 3.1 x 2.1 cm 1. Uterus: Anteverted wnl 2. Endometrium: wnl 3. Right Ovary: cystic lesion = 4.5 x 3.2 x 3.7cm 4. Left Ovary: follicles noted 5. Bilateral Adnexa: wnl 6. Posterior cul-de-sac: wnl IMPRESSION: No evidence for acute process. Endometrium within normal limits for thickness.
== END | disposition home or self-care (01) ==
LOC: RADUSWWP 09:28
PROVIDERS: ATTEND Family Medicine
DX: N83.202 Unspecified ovarian cyst, left side (principal)
CPT/HCPCS: 76856

== ENCOUNTER 2023-11-09 16:55 | Emergency (ER) | payer OTHER ==
[2023-11-09 17:01] VITALS: RESP 18
--- NOTE | 2023-11-09 17:26 | ED ---
Abdominal Pain HPI - General Chief Complaint: Abdominal Pain Stated Complaint: 7 weeks preg,abd Pain-sent by OB Time Seen by Provider: 11/09/23 17:04 Source: patient, RN notes reviewed Mode of arrival: ambulatory Limitations: no limitations - History of Present Illness Initial Comments: This is a 32-year-old female who presents to the emergency department for pelvic pain in . Patient is approximately 7 weeks and . States that yesterday she started to develop pain in the left pelvic region and some light pink spotting. Currently follows with Dr. Larsen, COMPUTER PROGRAMMING PROFESSOR. She was advised to go to the emergency department to rule out ectopic . Denies any associated nausea. MD Complaint: abdominal pain - Related Data Home Medications Medication Instructions Recorded Confirmed Aspirin EC [Ecotrin Low Dose] 162 mg PO DAILY 07/05/22 10/20/22 NIFEdipine [Adalat CC] 30 mg PO DAILY 07/05/22 10/19/22 Aks-Annt-Xtxgc Acid 1 cap PO DAILY 07/05/22 10/19/22 [-U Capsule (formulary)] Doxylamine Succinate [Unisom] 50 mg TOPICAL HS PRN 09/22/22 10/20/22 Allergies Allergy/AdvReac Type Severity Reaction Status Date / Time No Known Allergies Allergy Verified 11/09/23 17:02 Review of Systems ROS Statement: Those systems with pertinent positive or pertinent negative responses have been documented in the HPI. ROS Other: All systems not noted in ROS Statement are negative. Past Medical History Past Medical History: No Reported History, Hypertension History of Any Multi-Drug Resistant Organisms: None Reported Past Surgical History: No Surgical Hx Reported Additional Past Surgical History / Comment(s): ovum donation x 7, wisdom teeth Past Anesthesia/Blood Transfusion Reactions: No Reported Reaction Past Psychological History: No Psychological Hx Reported Smoking Status: Never smoker Past Alcohol Use History: Occasional Past Drug Use History: None Reported - Past Family History Father Family Medical History: Hypertension, Myocardial Infarction (HI) General Exam Limitations: no limitations General appearance: alert, in no apparent distress Head exam: Present: atraumatic, normocephalic, normal inspection Respiratory exam: Present: normal lung sounds bilaterally. Absent: respiratory distress, wheezes, rales, rhonchi, stridor Cardiovascular Exam: Present: regular rate, normal rhythm, normal heart sounds. Absent: systolic murmur, diastolic murmur, rubs, gallop, clicks Neurological exam: Present: alert, oriented X3, CN II-XII intact Psychiatric exam: Present: normal affect, normal mood Skin exam: Present: warm, dry, intact, normal color. Absent: rash Course Vital Signs 11/09/23 11/09/23 16:58 19:57 Temperature 97.9 F 98.1 F Pulse Rate 92 82 Respiratory 18 18 Rate Blood Pressure 148/89 121/84 O2 Sat by Pulse 99 98 Oximetry Medical Decision Making - Medical Decision Making This is a 32 year old female who presents to the emergency department for pelvic pain in . Was pt. sent in by a medical professional or institution? @ -No Did you speak to anyone other than the patient for history? @ -No Did you review nursing and triage notes? @ -Yes, and I agree, it is accurate with regards to the patient's symptoms. Were old charts reviewed? @ -No Differential Diagnosis? @ -Differential Abdominal Pain Women: Appendicitis, Cholecystitis, diverticulosis, ischemic bowel, pancreatitis, hepatitis, UTI, gastroenteritis, AAA, incarcerated hernia, bowel obstruction, constipation, inflammatory bowel, hepatitis, peptic ulcer disease, splenic infa rction, perforated viscus, vulvitis, ovarian torsion, PID, kidney stone, placenta abruption, this is not meant to be an all-inclusive list EKG interpreted by me (3pts min.)? @ -Not obtained X-rays interpreted by me (1pt min.)? @ -Not obtained CT interpreted by me (1pt min.)? @ -Not obtained U/S interpreted by me (1pt. min.)? @ -Obstetrics ultrasound obtained. My interpretation identifies an i ntrauterine gestational sac. What testing was considered but not performed? (CT, X-rays, U/S, labs)? Why? @ -None What meds were considered but not given? Why? @ -None Did you discuss the management of the patient with other professionals? @ -No Did you reconcile home meds? @ -No Was smoking cessation discussed for >3mins.? @ -No Was critical care preformed (if so, how long)? @ -No Were there social determinants of health that impacted care today? How? (Homelessness, low income, unemployed, alcoholism, drug addiction, transpo rtation, low edu. Level, literacy, decrease access to med. care, shelter, rehab)? @ -No Was there de-escalation of care discussed even if they declined? (Discuss DNR or withdrawal of care, Hospice)? @ -No What co-morbidities impacted this encounter? (DM, HTN, Smoking, COPD, CAD, Cancer, CVA, Hep., AIDS, mental health diagnosis, sleep apnea, morbid obesity)? @ - Was patient admitted / discharged? @ -Discharged. Lab work unremarkable. Beta-hCG 14,264. Urinalysis negative for signs of infection. She did report light spotting, however blood type is Rh+ and no RhoGAM is indicated. Obstetrics ultrasound demonstrates an intrauterine gestational sac with yolk sac identified corresponding to gestat ional age of 6 weeks. No pole or heart tones identified at this time likely due to early gestational age. Findings reviewed with the patient. Lab slip provided to have hCG count repeated in 48 hours. Advised Tylenol as needed for pain relief and follow-up with her COMPUTER PROGRAMMING PROFESSOR. Undiagnosed new problem with uncertain prognosis? @ -None Drug Therapy requiring intensive monitoring for toxicity (Heparin, Nitro, Insulin, Cardizem)? @ -None Were any procedures done? @ -None Diagnosis/symptom? @ -Abdominal pain in Acute, or Chronic, or Acute on Chronic? @ -Acute Uncomplicated (without systemic symptoms) or Complicated (systemic symptoms)? @ -Uncomplicated Side effects of treatment? @ -None Exacerbation, Progression, or Severe Exacerbation] @ -Not applicable Poses a threat to life or bodily function? @ -No Return precautions reviewed in depth, the patient is instructed to return to the emergency department with any new, worsening, or concerning symptoms. Patient verbalized understanding. This case was discussed in detail with the attending ED physician, Dr. Arnold. Presentation, findings, and treatment plan discussed in detail as well. - Lab Data Result diagrams: 11/09/23 17:51 11/09/23 17:51 Lab Results 11/09/23 11/09/23 11/09/23 Range/Units 17:51 17:51 17:51 WBC 6.6 (3.8-10.6) k/uL RBC 4.44 (3.80-5.40) m/uL Hgb 14.0 (11.4-16.0) gm/dL Hct 41.8 (34.0-46.0) % MCV 94.0 (80.0-100.0) fL MCH 31.4 (25.0-35.0) pg MCHC 33.4 (31.0-37.0) g/dL RDW 12.0 (11.5-15.5) % Plt Count 223 (150-450) k/uL MPV 8.4 Neutrophils % 62 % Lymphocytes % 27 % Monocytes % 6 % Eosinophils % 2 % Basophils % 1 % Neutrophils # 4.1 (1.3-7.7) k/uL Lymphocytes # 1.8 (1.0-4.8) k/uL Monocytes # 0.4 (0-1.0) k/uL Eosinophils # 0.1 (0-0.7) k/uL Basophils # 0.0 (0-0.2) k/uL Sodium 135 L (137-145) mmol/L Potassium 4.7 (3.5-5.1) mmol/L Chloride 105 (98-107) mmol/L Carbon Dioxide 21 L (22-30) mmol/L Anion Gap 9 mmol/L BUN 17 (7-17) mg/dL Creatinine 0.71 (0.52-1.04) mg/dL Est GFR (CKD-EPI)AfAm >90 (>60 ml/min/1.73 sqM) Est GFR (CKD-EPI)NonAf >90 (>60 ml/min/1.73 sqM) Glucose 84 (74-99) mg/dL Calcium 9.5 (8.4-10.2) mg/dL Total Bilirubin 0.6 (0.2-1.3) mg/dL AST 30 (14-36) U/L ALT 16 (4-34) U/L Alkaline Phosphatase 52 (38-126) U/L Total Protein 8.0 (6.3-8.2) g/dL Albumin 4.8 (3.5-5.0) g/dL HCG, Quant 61255.3 mIU/mL Urine Color Colorless Urine Appearance Clear (Clear) Urine pH 6.0 (5.0-8.0) Ur Specific [place] 1.008 (1.001-1.035) Urine Protein Negative (Negative) Urine Glucose (UA) Negative (Negative) Urine Ketones Negative (Negative) Urine Blood Negative (Negative) Urine Nitrite Negative (Negative) Urine Bilirubin Negative (Negative) Urine Urobilinogen <2.0 (<2.0) mg/dL Ur Leukocyte Esterase Negative (Negative) Blood Type Blood Type Recheck Bld Type Recheck Status 11/09/23 Range/Units 17:51 WBC (3.8-10.6) k/uL RBC (3.80-5.40) m/uL Hgb (11.4-16.0) gm/dL Hct (34.0-46.0) % MCV (80.0-100.0) fL MCH (25.0-35.0) pg MCHC (31.0-37.0) g/dL RDW (11.5-15.5) % Plt Count (150-450) k/uL MPV Neutrophils % % Lymphocytes % % Monocytes % % Eosinophils % % Basophils % % Neutrophils # (1.3-7.7) k/uL Lymphocytes # (1.0-4.8) k/uL Monocytes # (0-1.0) k/uL Eosinophils # (0-0.7) k/uL Basophils # (0-0.2) k/uL Sodium (137-145) mmol/L Potassium (3.5-5.1) mmol/L Chloride (98-107) mmol/L Carbon Dioxide (22-30) mmol/L Anion Gap mmol/L BUN (7-17) mg/dL Creatinine (0.52-1.04) mg/dL Est GFR (CKD-EPI)AfAm (>60 ml/min/1.73 sqM) Est GFR (CKD-EPI)NonAf (>60 ml/min/1.73 sqM) Glucose (74-99) mg/dL Calcium (8.4-10.2) mg/dL Total Bilirubin (0.2-1.3) mg/dL AST (14-36) U/L ALT (4-34) U/L Alkaline Phosphatase (38-126) U/L Total Protein (6.3-8.2) g/dL Albumin (3.5-5.0) g/dL HCG, Quant mIU/mL Urine Color Urine Appearance (Clear) Urine pH (5.0-8.0) Ur Specific [place] (1.001-1.035) Urine Protein (Negative) Urine Glucose (UA) (Negative) Urine Ketones (Negative) Urine Blood (Negative) Urine Nitrite (Negative) Urine Bilirubin (Negative) Urine Urobilinogen (<2.0) mg/dL Ur Leukocyte Esterase (Negative) Blood Type AB Positive Blood Type Recheck AB Pos Bld Type Recheck Status No - Radiology Data Radiology results: report reviewed, image reviewed Disposition Clinical Impression: Abdominal pain during Disposition: HOME SELF-CARE Instructions (If sedation given, give patient instructions): Abdominal Pain in (ED) Additional Instructions: Return to the emergency department with any new, worsening, or concerning symptoms. Take the lab slip to have your hCG count repeated in 48 hours. Take Tylenol as needed for pain relief. Follow-up with Dr. Larsen. Is patient prescribed a controlled substance at d/c from ED?: No Referrals: Maximino Gonzalez [Primary Care Provider] - 1-2 days Time of Disposition: 19:47
[2023-11-09 18:23] LABS: Basophils % (A) 1 %; Eosinophils # (A) 0.1 k/uL (0-0.7); Eosinophils % (A) 2 %; HCT 41.8 % (34.0-46.0); Lymphocytes # (A) 1.8 k/uL (1.0-4.8); Lymphocytes % (A) 27 %; MCH 31.4 pg (25.0-35.0); MCHC 33.4 g/dL (31.0-37.0); Mean Platelet Volume 8.4; Monocytes # (A) 0.4 k/uL (0-1.0); Monocytes % (A) 6 %; Neutrophils # (A) 4.1 k/uL (1.3-7.7); Neutrophils % (A) 62 %; Platelet Count 223 k/uL (150-450); RBC 4.44 m/uL (3.80-5.40); WBC 6.6 k/uL (3.8-10.6)
[2023-11-09 18:43] LABS: ALT 16 U/L (4-34); African American GFR (CKD) >90 (>60 ml/min/1.73 sqM); Albumin 4.8 g/dL (3.5-5.0); Anion Gap 9 mmol/L; Blood Urea Nitrogen 17 mg/dL (7-17); Calcium 9.5 mg/dL (8.4-10.2); Carbon Dioxide 21 mmol/L (22-30); Chloride 105 mmol/L (98-107); Glucose 84 mg/dL (74-99); Non-African American GFR(CKD) >90 (>60 ml/min/1.73 sqM); Sodium 135 mmol/L (137-145); Total Bilirubin 0.6 mg/dL (0.2-1.3)
[2023-11-09 18:44] LABS: AST 30 U/L (14-36); Alkaline Phosphatase 52 U/L (38-126); Potassium 4.7 mmol/L (3.5-5.1)
[2023-11-09 18:54] LABS: Appearance,Urine Clear (Clear); Bilirubin,Urine Negative (Negative); Blood,Urine Negative (Negative); Color,Urine Colorless; Glucose,Urine (UA) Negative (Negative); Ketones,Urine Negative (Negative); Leukocyte Esterase,Urine Negative (Negative); Nitrite,Urine Negative (Negative); Protein,Urine Negative (Negative); Specific Gravity,Urine 1.008 (1.001-1.035); Urobilinogen,Urine <2.0 mg/dL (<2.0)
[2023-11-09 19:00] LABS: HCG,Quantitative Serum 14264.3 mIU/mL
--- NOTE | 2023-11-09 19:33 | US ---
EXAMINATION TYPE: Transabdominal DATE OF EXAM: 11/09/2023 6:12 PM COMPARISON: Pelvic ultrasound 05/14/2023 CLINICAL INDICATION: Female, 32 years old with history of Pelvic pain in ; Patient states pe lvic pain. Specifically wants TV ultrasound EXAM PERFORMED: Transvaginal (TV) and Transabdominal (TA) EXAM MEASUREMENTS: GESTATIONAL AGE / DATING Physician Established: Not yet established Dates by LMP: (6 weeks/0 days) EDC: 07/04/2024 Dates by First Scan: No previous this is first scan Dates by Current Scan for: Unable to date by today's study MATERNAL ANATOMY Uterus: 7.7 x 4.5 x 5.4cm Right Ovary: 4.2 x 2.0 x 2.4cm. There is a 2.2 x 2.0 x 2.0cm area seen within the right ovary related to follicle Left Ovary: 2.4 x 1.4x x 1.8cm. WNL Post CDS / Adnexa: Trace anechoic free fluid likely physiologic. Presence of free fluid: No Presence of corpus luteal cyst: There is a 2.2 x 2.0 x 2.0cm area seen within the right ovary, relate d to follicle Presence of subchorionic bleed: No GESTATION / SURVEY CRL: NA MSD: Out of range Yolk sac seen, no pole seen at this time. Yolk Sac (normal less than 6mm): 2mm Heart Rate: NA Date of LMP: 09/28/2023 Beta HcG (if available): Not available at this time IMPRESSION: Intrauterine gestational sac with yolk sac identified corresponding to ultrasound age of 6 weeks and 0 days. No pole or heart tones are identified at this time likely due to early gestationa l age. Recommend follow-up with pelvic ultrasound and serial beta hCG to ensure further development o f the fetus.
[2023-11-09 20:10] VITALS: BP 121/84; PULSE 82; TEMP 98.1
== END 2023-11-09 19:57 | disposition home or self-care (01) ==
LOC: EC 16:55
DX: O26.891 Other specified pregnancy related conditions, first trimester (principal); R10.9 Unspecified abdominal pain; Z3A.01 Less than 8 weeks gestation of pregnancy
CPT/HCPCS: 36415; 76801; 76817; 80053; 81003; 84702; 85025; 86900; 86901; 99284

== ENCOUNTER → 2023-11-11 | Outpatient (CLI) | payer OTHER | END | disposition home or self-care (01) | LOC: LABWHC1 07:09 | PROVIDERS: ATTEND Obstetrics & Gynecology | DX: O20.0 Threatened abortion (principal); Z3A.00 Weeks of gestation of pregnancy not specified | CPT/HCPCS: 36415; 84702 ==

== ENCOUNTER → 2023-11-13 | Outpatient (CLI) | payer OTHER | END | disposition home or self-care (01) | LOC: LABWHC1 08:10 | PROVIDERS: ATTEND Obstetrics & Gynecology | DX: O20.0 Threatened abortion (principal) | CPT/HCPCS: 36415; 84702 ==

== ENCOUNTER 2024-05-04 13:11 | Outpatient (CLI) | payer OTHER ==
[2024-05-04] MEDS: LACTATED RINGERS 1,000 ML IV ONE (14:10)
[2024-05-04 15:41] VITALS: BP 124/75; PULSE 142; RESP 20; TEMP 98.3
--- NOTE | 2024-05-19 15:57 | P.MSEPDOC ---
Presenting Problems - Arrival Data Date of Arrival on Unit: 05/04/24 Time of Arrival on Unit: 13:11 Mode of Transport: Ambulatory - Complaint OB-Reason for Admission/Chief Complaint: Decreased Movement Comment: cough and cramping. Medical History - Information : 4 Para: 2 Term: 2 : 0 Abortions: Spontaneous or Elective: 1 Number of Living Children: 2 - Gestational Age Gestational Age by HOMERO (wks/days): 30 Weeks and 6 Days Review of Systems - Review of Systems Constitutional: No problems Breast: No problems ENT: No problems Cardiovascular: No problems Respiratory: No problems Gastrointestinal: No problems Genitourinary: No problems Musculoskeletal: No problems Neurological: No problems Skin: No problems Vital Signs - Temperature Temperature: 98.3 F Temperature Source: Temporal Artery Scan - Pulse Pulse Oximetery Pulse Rate: 142 Pulse Assessment Method: Pulse Oximetry - Respirations Respiratory Rate: 20 Oxygen Delivery Method: Room Air O2 Sat by Pulse Oximetry: 100 - Blood Pressure Right Arm Blood Pressure: 124/75 Blood Pressure Mean: 91 Blood Pressure Source: Automatic Cuff Medical Screen Scoring - Cervical Exam Dilation (cm): 0 Membranes: Intact - Uterine Contractions Duration From (seconds): 30 Duration To (seconds): 50 Intensity: Mild Resting: Soft to palpation - Assessment - Baby A Baseline FHR: 150 Heart Rate - NICHD Category: Category I (Normal) NST: Reactive Physician Notification - Physician Notified Physician Notified Date: 05/04/24 Physician Notified Time: 13:48 Physician: Ketty Larsen New Order Received: Yes - Notification Comment Comment: Initial orders for 1 liter LR IV bolus, cervical exam and call physician with update once bolus completed. Additional orders with status update report, at 1451, recieved for EKG and notify with results. Final orders at 1519 for d/c home, with instructions to follow up with cardiology. Maternal Triage Index - Maternal Triage Index Presenting for scheduled procedure w/no complaint: No - Stat/Priority 1 Stat Priority 1: Yes Provider Notified: Ketty Larsen Provider Notified Time: 13:48 Criteria Met for Priority 1: maternal HR ranging from 140-152. Disposition - Disposition OB Disposition: Discharge to home Discharge Date: 05/04/24 Discharge Time: 15:19 I agree with the RN Medical Screening Exam: Yes Physician's MSE Comment: I have neither seen nor examined the patient Case reviewed; plan agreed upon as documented in EMR&OBIX.: Yes Diagnosis: DECREASED MOVEMENTS, THIRD TRIMESTER, FETUS 1
== END 2024-05-04 15:28 | disposition home or self-care (01) ==
LOC: FBPOP 13:11
PROVIDERS: ATTEND Obstetrics & Gynecology
DX: O36.8131 Decreased fetal movements, third trimester, fetus 1 (principal); Z3A.30 30 weeks gestation of pregnancy
CPT/HCPCS: 59025; 96360; 93005; G0463; 99214

== ENCOUNTER 2024-06-20 12:48 | Outpatient (CLI) | payer OTHER ==
[2024-06-20 14:33] LABS: Basophils % (A) 0 %; Eosinophils # (A) 0.1 k/uL (0-0.7); Eosinophils % (A) 1 %; HCT 32.9 % (34.0-46.0); HGB 10.7 gm/dL (11.4-16.0); Hypochromasia Slight; Lymphocytes # (A) 1.6 k/uL (1.0-4.8); Lymphocytes % (A) 19 %; MCH 31.1 pg (25.0-35.0); MCHC 32.5 g/dL (31.0-37.0); MCV 95.6 fL (80.0-100.0); Mean Platelet Volume 9.4; Monocytes # (A) 0.6 k/uL (0-1.0); Monocytes % (A) 7 %; Neutrophils % (A) 71 %; Platelet Count 195 k/uL (150-450); RBC 3.45 m/uL (3.80-5.40); RDW 15.3 % (11.5-15.5); WBC 8.4 k/uL (3.8-10.6)
[2024-06-20 14:46] LABS: Appearance,Urine Clear (Clear); Bilirubin,Urine Negative (Negative); Blood,Urine Negative (Negative); Color,Urine Colorless; Glucose,Urine (UA) Negative (Negative); Ketones,Urine Negative (Negative); Leukocyte Esterase,Urine Small (Negative); Nitrite,Urine Negative (Negative); PH, Urine 6.5 (5.0-8.0); Protein,Urine Negative (Negative); RBC,Urine <1 /hpf (0-5); Specific Gravity,Urine 1.004 (1.001-1.035); Squamous Epithelial Cell,Urine 3 /hpf (0-4); Urobilinogen,Urine <2.0 mg/dL (<2.0); WBC,Urine 1 /hpf (0-5)
[2024-06-20 14:48] LABS: ALT 13 U/L (4-34); AST 21 U/L (14-36); African American GFR (CKD) >90 (>60 ml/min/1.73 sqM); Blood Urea Nitrogen 6 mg/dL (7-17); LDH 196 U/L (120-246); Non-African American GFR(CKD) >90 (>60 ml/min/1.73 sqM)
[2024-06-20 15:05] LABS: Creatinine,Urine Random 41.5 mg/dL; Protein/Creatinine Ratio,Urine 0.313
[2024-06-20 15:44] VITALS: BP 139/92; PULSE 114; RESP 18; TEMP 97.7
== END 2024-06-20 15:15 | disposition home or self-care (01) ==
LOC: FBPOP 12:48
PROVIDERS: ATTEND Obstetrics & Gynecology
DX: Z53.9 Procedure and treatment not carried out, unspecified reason (principal)
CPT/HCPCS: 59025; 82570; 84156; 82565; 83615; 84450; 84460; 84520; 84550; 85025; 81001; G0463; 99215

== ENCOUNTER 2024-06-22 11:03 | Outpatient (CLI) | payer OTHER ==
[2024-06-22 11:59] LABS: Appearance,Urine Cloudy (Clear); Bacteria,Urine Rare /hpf; Bilirubin,Urine Negative (Negative); Blood,Urine Negative (Negative); Color,Urine Light Yellow; Glucose,Urine (UA) Negative (Negative); Ketones,Urine Negative (Negative); Leukocyte Esterase,Urine Large (Negative); Nitrite,Urine Negative (Negative); PH, Urine 6.5 (5.0-8.0); Protein,Urine Negative (Negative); RBC,Urine <1 /hpf (0-5); Specific Gravity,Urine 1.009 (1.001-1.035); Squamous Epithelial Cell,Urine 12 /hpf (0-4); Urobilinogen,Urine <2.0 mg/dL (<2.0); WBC,Urine 14 /hpf (0-5)
[2024-06-22 12:07] LABS: Basophils % (A) 0 %; Eosinophils # (A) 0.1 k/uL (0-0.7); Eosinophils % (A) 1 %; HCT 32.1 % (34.0-46.0); HGB 10.6 gm/dL (11.4-16.0); Lymphocytes # (A) 1.3 k/uL (1.0-4.8); Lymphocytes % (A) 18 %; MCH 31.3 pg (25.0-35.0); MCV 94.9 fL (80.0-100.0); Mean Platelet Volume 9.3; Monocytes # (A) 0.5 k/uL (0-1.0); Monocytes % (A) 7 %; Neutrophils # (A) 5.3 k/uL (1.3-7.7); Neutrophils % (A) 72 %; Platelet Count 197 k/uL (150-450); RBC 3.38 m/uL (3.80-5.40); RDW 15.4 % (11.5-15.5); WBC 7.3 k/uL (3.8-10.6)
[2024-06-22 12:08] LABS: Protein/Creatinine Ratio,Urine 0.163
[2024-06-22 12:15] LABS: ALT 14 U/L (4-34); AST 19 U/L (14-36); African American GFR (CKD) >90 (>60 ml/min/1.73 sqM); Blood Urea Nitrogen 6 mg/dL (7-17); LDH 171 U/L (120-246); Non-African American GFR(CKD) >90 (>60 ml/min/1.73 sqM); Uric Acid 6.7 mg/dL (3.7-7.4)
[2024-06-22 13:30] VITALS: BP 121/78; PULSE 137; RESP 17; TEMP 98.2
== END 2024-06-22 13:15 | disposition home or self-care (01) ==
LOC: FBPOP 11:03
PROVIDERS: ATTEND Obstetrics & Gynecology
DX: I10 Essential (primary) hypertension (principal); R00.0 Tachycardia, unspecified; R94.31 Abnormal electrocardiogram [ECG] [EKG]
CPT/HCPCS: 36415; 59025; 81001; 82565; 82570; 83615; 84156; 84450; 84460; 84520; 84550; 85025; 93005

== ENCOUNTER 2024-06-26 06:00 | Inpatient (IN) | payer OTHER ==
[2024-06-26] MEDS: LACTATED RINGERS 1,000 ML IV SCH (06:20)
[2024-06-26] MEDS ORDERED: CARBOPROST TROMETHAMINE 250 MCG/ML 1 ML AMP IM PRN (06:21)
[2024-06-26] MEDS ORDERED: METHYLERGONOVINE 0.2 MG/ML 1 ML AMP IM PRN (06:21)
[2024-06-26] MEDS ORDERED: miSOPROStoL 200 MCG TAB RECTAL PRN (06:21)
[2024-06-26] MEDS ORDERED: OXYTOCIN 10 UNIT/ML 1 ML VIAL IM PRN (06:21)
[2024-06-26] MEDS ORDERED: miSOPROStoL 200 MCG TAB PO PRN (06:21)
[2024-06-26] MEDS ORDERED: TERBUTALINE 1 MG/ML VIAL SQ PRN (06:21)
[2024-06-26] MEDS ORDERED: TRANEXAMIC 1,000 MG/100ML-NACL 1,000 MG in EMPTY BAG 1 BAG IV PRN (06:21)
[2024-06-26] MEDS ORDERED: LIDOCAINE 0.5% (PF) 5 MG/ML (50 ML SDV) SQ PRN (06:21)
[2024-06-26 06:51] LABS: Basophils % (A) 0 %; Eosinophils # (A) 0.1 k/uL (0-0.7); Eosinophils % (A) 1 %; HCT 33.5 % (34.0-46.0); HGB 10.9 gm/dL (11.4-16.0); Lymphocytes # (A) 1.7 k/uL (1.0-4.8); Lymphocytes % (A) 20 %; MCH 30.3 pg (25.0-35.0); MCHC 32.4 g/dL (31.0-37.0); MCV 93.5 fL (80.0-100.0); Mean Platelet Volume 9.7; Monocytes # (A) 0.6 k/uL (0-1.0); Monocytes % (A) 7 %; Neutrophils % (A) 69 %; Platelet Count 215 k/uL (150-450); RBC 3.58 m/uL (3.80-5.40); RDW 15.8 % (11.5-15.5); WBC 8.7 k/uL (3.8-10.6)
[2024-06-26] MEDS: PENICILLIN G POTASSIUM 5,000,000 UNIT in SODIUM CHLORIDE 0.9% 100 ML IVPB STA (06:59)
[2024-06-26] MEDS: OXYTOCIN 30 UNITS/500 ML NS 30 UNIT in SALINE 1 500ML.BAG IV SCH (07:32)
--- NOTE | 2024-06-26 10:30 | P.HPOB ---
History of Present Illness H&P Date: 06/26/24 Chief Complaint: Medical induction of labor Ms. Day is a 33 year old at 38 weeks and 3 days by LMP consistent with early US who presents for medical induction of labor for chronic hypertension on antihypertensives (Procardial XL 30mg daily). She has been under surveillance in the third trimester which has been reassuring. Estimated weight was in the 69%ile based on a 32 week US. Obstetric history: 2 FTVD, last was IOL for pre-eclampsia complicated by vaccuum assisted vaginal delivery and shoulder dystocia work-up: blood type AB positive, antibody screen negative, rubella immune, VDRL non-reactive, HBsAg negative, HIV negative, gonorrhea negative, chlamydia negative, 1 hour GTT wnl, GBS positive. Past Medical History Past Medical History: No Reported History, Hypertension History of Any Multi-Drug Resistant Organisms: None Reported Past Surgical History: No Surgical Hx Reported Additional Past Surgical History / Comment(s): ovum donation x 7, wisdom teeth Past Anesthesia/Blood Transfusion Reactions: No Reported Reaction Past Psychological History: No Psychological Hx Reported Smoking Status: Former smoker Past Alcohol Use History: Occasional Past Drug Use History: None Reported - Past Family History Father Family Medical History: Hypertension, Myocardial Infarction (ID) Medications and Allergies Home Medications Medication Instructions Recorded Confirmed Type Aspirin EC [Ecotrin Low Dose] 162 mg PO DAILY 07/05/22 06/26/24 History NIFEdipine [Adalat CC] 30 mg PO DAILY 07/05/22 06/26/24 History Tyn-Ejem-Iekjc Acid 1 cap PO DAILY 07/05/22 06/26/24 History [-U Capsule (formulary)] Docusate [Colace] 100 mg PO DAILY 05/04/24 06/26/24 History Allergies Allergy/AdvReac Type Severity Reaction Status Date / Time No Known Allergies Allergy Verified 06/26/24 06:18 Exam Vital Signs Temp Pulse Resp BP Pulse Ox 06/26/24 06:17 97.7 F 137 H 16 122/84 99 Intake and Output 06/25/24 06/26/24 06/26/24 22:59 06:59 14:59 Other: Weight 75.75 kg Focused physical exam is performed. This is a healthy-appearing in no apparent distress. Breathing is non-labored. Abdomen is gravid and non-tender. Cervical exam is 2/70/-3. AROM is undertaken with clear fluid noted. Extremities non-tender and non-edematous. heart tones are Category I and tocometer is graphing contractions every 2-4 minutes. Results Result Diagrams: 06/26/24 06:21 Abnormal Lab Results - Last 24 Hours (Table) 06/26/24 Range/Units 06:21 RBC 3.58 L (3.80-5.40) m/uL Hgb 10.9 L (11.4-16.0) gm/dL Hct 33.5 L (34.0-46.0) % RDW 15.8 H (11.5-15.5) % Assessment and Plan Assessment: 33 year old at 38 weeks and 3 days presenting for medical IOL for chronic hypertension Plan: Admit, clear liquid diet, pitocin per protocol, epidural prn, PCN ppx for GBS, continuous EFM and tocometer, anticipate vaginal delivery
[2024-06-26] MEDS: PENICILLIN G POTASSIUM 2,500,000 UNIT in SODIUM CHLORIDE 0.9% 100 ML IVPB SCH (12:23)
[2024-06-26] MEDS ORDERED: fentaNYL (PF) 50 MCG/ML 5 ML AMP ONE (17:33)
[2024-06-26] MEDS ORDERED: ROPIVACAINE 5 MG/ML 30 ML VIAL ONE (17:33)
[2024-06-26] MEDS ORDERED: SODIUM CHLORIDE 0.9% 250 ML BAG ONE (17:33)
[2024-06-26 18:32] LABS: Glucose,Whole Blood 74 mg/dL (70-110)
[2024-06-26] MEDS: PANTOPRAZOLE 40 MG TABLET PO STA (21:11)
[2024-06-26 22:37] LABS: Glucose,Whole Blood 84 mg/dL (70-110)
[2024-06-27] MEDS: CITRIC ACID-SODIUM CITRATE 15 ML CUP PO ONE (13:11)
[2024-06-27] MEDS ORDERED: NALBUPHINE (ANES) 10 MG/ML - 1 ML AMP ONE (13:51)
[2024-06-27] MEDS ORDERED: MORPHINE SULFATE (PF) 0.3 MG/0.3 ML SYR ONE (13:51)
[2024-06-27] MEDS ORDERED: OXYTOCIN 10 UNIT/ML 1 ML VIAL ONE (13:51)
[2024-06-27] MEDS ORDERED: KETOROLAC 15 MG/ML 1 ML VIAL ONE (13:51)
[2024-06-27] MEDS ORDERED: ONDANSETRON 4 MG/2 ML VIAL ONE (13:51)
[2024-06-27] MEDS ORDERED: diphenhydrAMINE 50 MG/ML 1 ML VIAL IVP PRN ×2 (14:51)
[2024-06-27] MEDS ORDERED: ZOLPIDEM 5 MG TAB PO PRN (14:51)
[2024-06-27] MEDS ORDERED: ONDANSETRON 4 MG/2 ML VIAL IVP PRN (14:51)
[2024-06-27] MEDS ORDERED: METOCLOPRAMIDE 5 MG/ML 2 ML VIAL IVP PRN (14:51)
[2024-06-27] MEDS ORDERED: diphenhydrAMINE 50 MG CAP PO PRN (14:51)
[2024-06-27] MEDS ORDERED: NALOXONE 0.4 MG/ML 1 ML VIAL IV PRN (14:51)
[2024-06-27] MEDS ORDERED: diphenhydrAMINE 25 MG CAP PO PRN (14:51)
--- NOTE | 2024-06-27 14:51 | P.OP ---
Date of Procedure: 06/27/24 Preoperative Diagnosis: 1. Term IUP at 38 weeks 2. Chronic Hypertension 3. Expected large for gestational age infant 4. Arrest of descent 5. History of shoulder dystocia Postoperative Diagnosis: 1. Term IUP at 38 weeks 2. Chronic Hypertension 3. Expected large for gestational age infant 4. Arrest of descent 5. History of shoulder dystocia 6. Occiput Posterior presentation Procedure(s) Performed: Primary Lower Transverse Section Implants: None Anesthesia: epidural Surgeon: Ketty Larsen Medicine And Health Service Manager #1: Belle B[place]reaux Estimated Blood Loss (ml): 790 Urine output (ml): 100 (blood-tinged before the case) Pathology: none sent Condition: stable Disposition: floor Indications for Procedure: Ms. Day is a 33 year old at 38 weeks and 3 days gestation being medically induced for chronic hypertension on antihypertensives. She does have a history of 2 mild shoulder dystocias with no residual deficits. This fetus was expected to be larger than her previous babies. Labor was very protracted, however, the patient did reach complete dilation. She pushed for over an hour with no descent. section was recommended for maternal and well-being. The risks, benefits, and alternatives to section were discussed with the patient including risk of bleeding, infection, damage to surrounding structures including bladder/bowels/ureters, and post-operative VTE. The patient understands these risks and desires to proceed with section. Operative Findings: Occiput posterior presentation of fetus. Apgars 9/9. Weight 8 pounds and 13 oucnes (4010 grams). Normal uterus, bilateral fallopian tubes, and ovaries. Description of Procedure: The patient was taken back to the operating room where spinal anesthesia was found to be adequate. Two grams of Ancef were given for infection prophylaxis. She was prepared and draped in the dorsal supine position with a leftward tilt. A Pfannenstiel skin incision was made with the scalpel. The incision was carried down to the fascia with a bovie. The fascia was incised and extended laterally with Quiñonez scissors. The superior aspect of the fascia was grasped with the Reece clamps. The underlying rectus muscle was dissected off sharply with Quiñonez scissors. In a similar fashion, the inferior aspect of the fascia was elevated with Reece clamps and the rectus muscle and pyramidalis were dissected off. Excellent hemostasis was achieved with the bovie. The rectus muscle was in the midline down to the level of the pubic symphysis. Pre-peritoneal fatty tissue was bluntly dissected to expose the peritoneum. The peritoneum was found to be free of adherent bowel and entered sharply with Quiñonez scissors. The peritoneal incision was extended superiorly and inferiorly to the bladder reflection with good visualization of the bladder. The bladder blade was inserted and vesicouterine peritoneum was identified. Intraabdominal survey revealed scant, clear peritoneal fluid and the thinned-out lower uterine segment. The bladder blade was repositioned to keep the bladder out of the operative field. The lower uterine segment was incised with a scalpel. The amniotic sac was ruptured with an Allis clamp and clear fluid was noted. The uterine incision was extended bluntly with lateral and upward traction. The fetus was in cephalic presentation. The head was elevated out of the pelvis with special attention paid to avoid using the uterine incision as a fulcrum. Gentle fundal pressure was applied once the head was brought into the incision. The inf ant was delivered with no difficulty and was noted to be crying spontaneously. The mouth and nose were suctioned with a bulb. The cord was clamped and cut. The infant was handed off to the sheet tester. IV oxytocin was initiated to facilitate uterine contractions. The placenta was delivered intact with manual massage of uterine fundus. The uterus was then exteriorized and the inside of the uterus was gently wiped with a lap sponge to assure complete removal of placental membranes. The uterine incision was closed with 0-Vicryl suture in a running locked fashion. A second imbricating layer was placed with 0-Vicryl. The ovaries and tubes were found to be normal. The uterus, tubes, and ovaries were then gently returned to the abdominal cavity. The abdomen was copiously suction irrigated. The uterine incision was reinspected and excellent hemostasis was noted. The fascial layer was closed with a 0-Vicryl suture. The subcutaneous tissue was reapproximated with 2-0 Plain Gut. The skin was closed with 4-0 Monocryl in a subcuticular fashion.The patient tolerated the procedure well. All the counts were correct times two. The patient was taken to the recovery room in a stable condition. A physician assistant infant toddler teacher was utilized for the entire procedure due to the need for tissue retraction, dissection of vital structures, prevention and management of blood loss, and reduction in overall operative and anesthesia time as is the standard of care.
[2024-06-27] MEDS: ACETAMINOPHEN TAB 500 MG TAB PO SCH (17:51)
[2024-06-27] MEDS: SENNOSIDES-DOCUSATE SODIUM 1 EACH TAB PO SCH (19:54)
[2024-06-27] MEDS: LACTATED RINGERS 1,000 ML IV SCH (19:54)
[2024-06-27] MEDS: KETOROLAC 15 MG/ML 1 ML VIAL IVP SCH (23:19)
[2024-06-28 07:19] LABS: Anisocytosis Slight; Basophils % (A) 0 %; Eosinophils # (A) 0.1 k/uL (0-0.7); Eosinophils % (A) 1 %; HCT 27.6 % (34.0-46.0); Lymphocytes # (A) 1.4 k/uL (1.0-4.8); Lymphocytes % (A) 15 %; MCH 30.4 pg (25.0-35.0); MCHC 31.6 g/dL (31.0-37.0); MCV 96.1 fL (80.0-100.0); Mean Platelet Volume 9.7; Monocytes # (A) 0.6 k/uL (0-1.0); Monocytes % (A) 7 %; Neutrophils # (A) 7.2 k/uL (1.3-7.7); Neutrophils % (A) 75 %; Platelet Count 155 k/uL (150-450); RBC 2.87 m/uL (3.80-5.40); WBC 9.5 k/uL (3.8-10.6)
[2024-06-28 07:22] LABS: HGB 8.7 gm/dL (11.4-16.0)
--- NOTE | 2024-06-28 08:42 | P.PN ---
Progress Note - Text Progress Note Date: 06/28/24 Postoperative day 1 status post section under epidural anesthesia, and epidural morphine given for postoperative analgesia, patient doing well, there is no anesthesia related complications, Patient had no headache, vital signs stable , Assessment and plan= postop day 1 status post , doing well there is no anesthesia related complication.
--- NOTE | 2024-06-28 08:45 | P.PNOBGPC ---
Subjective - Subjective Principal diagnosis: s/p primary section Interval history: The patient is doing well this morning and had no acute events overnight. She has no complaints this morning. She reports minimal lochia, passing flatus, voiding without difficulty, ambulating, and eating/drinking without nausea or vomiting. She is her without difficulty. She denies chest pain, shortness of breathing, fevers, or chills overnight. She denies pain or swelling in the legs. Patient reports: Reports appetite normal, Reports voiding normally, Reports pain well controlled, Reports ambulating normally [place]: doing well Objective - Vital Signs Latest vital signs: Vital Signs Temp Pulse Resp BP Pulse Ox 06/28/24 00:00 98.4 F 86 16 117/72 99 06/27/24 20:00 98.4 F 101 H 16 148/89 98 06/27/24 17:40 97.2 F L 100 18 120/62 100 06/27/24 16:45 95 16 114/60 100 06/27/24 16:30 104 H 16 112/60 06/27/24 16:15 105 H 16 112/60 100 06/27/24 16:00 110 H 16 146/86 06/27/24 15:45 96 16 127/90 100 06/27/24 15:29 97 16 139/76 100 06/27/24 15:15 95 16 138/75 100 06/27/24 15:00 94 16 134/64 100 06/27/24 14:45 97.5 F L 96 18 136/74 100 Intake and Output 06/27/24 06/28/24 06/28/24 22:59 06:59 14:59 Output Total 600 1900 Balance -600 -1900 Output: Urine 600 1900 Uretheral ([place]) 1200 Other: Voiding Method Indwelling Catheter Indwelling Catheter - Exam Extremities: Present: normal Abdomen: Present: normal appearance, soft Incision: Present: normal, dry, dressed Uterus: Present: normal, firm - Labs Labs: Abnormal Lab Results - Last 24 Hours (Table) 06/28/24 Range/Units 06:17 RBC 2.87 L (3.80-5.40) m/uL Hgb 8.7 L D (11.4-16.0) gm/dL Hct 27.6 L (34.0-46.0) % RDW 16.0 H (11.5-15.5) % Assessment and Plan Assessment: 33 year old now POD#1 s/p primary section for arrest of descent with LGA fetus Plan: 1. Postoperative. Patient doing well, meeting all milestones appropriately. 2. CHTN. Procardia XL 30mg daily. BPs normotensive to mild range. Asymptomatic. 3. Viable male infant. Nursing well, doing well at bedside. Will need circumcision prior to discharge. Dispo: Anticipate discharge home tomorrow.
[2024-06-28] MEDS: FERROUS SULFATE 325 MG TAB PO SCH (14:23)
[2024-06-28] MEDS: SIMETHICONE 80 MG CHEWABLE PO PRN (15:52)
[2024-06-28 16:25] VITALS: RESP 16
[2024-06-28] MEDS: IBUPROFEN 800 MG TAB PO SCH (18:00)
--- NOTE | 2024-06-29 09:18 | P.DS ---
Providers Date of admission: 06/26/24 06:00 Expected date of discharge: 06/29/24 Attending physician: Ketty Larsen MD Primary care physician: Maximino [facility] Course: Ms. Day is a 33 year old now POD#2 s/p primary LTCS for arrest of descent. Her surgery was uncomplicated. The patient is doing well this morning and had no acute events overnight. She has no complaints this morning. She reports minimal lochia, passing flatus, voiding without difficulty, ambulating, and eating/drinking without nausea or vomiting. Infant doing well at bedside, s/p circumcision. She denies chest pain, shortness of breathing, fevers, or chills overnight. She denies pain or swelling in the legs. Postoperative restrictions are reviewed with the patient including pelvic rest for 6 weeks, no lifting heavier than 15 pounds for 6 weeks. The patient is encouraged to call the office if she experiences any heavy bleeding, foul-smelling discharge, breast complaints, or any if she has any other concerns. She will follow up in the office with in 2 weeks for postoperative exam. All questions are answered. Patient Condition at Discharge: Good Plan - Discharge Summary New Discharge Prescriptions: New Ibuprofen [Motrin] 600 mg PO Q6HR PRN #30 tab PRN Reason: Mild Pain (Scale 1 To 3) Acetaminophen Tab [Tylenol] 650 mg PO Q6H PRN #30 tab PRN Reason: Mild Pain (Scale 1 To 3) No Action [id number] Acid [-U Capsule (formulary)] 1 cap PO DAILY Aspirin EC [Ecotrin Low Dose] 162 mg PO DAILY Docusate [Colace] 100 mg PO DAILY NIFEdipine [Adalat CC] 30 mg PO DAILY Discharge Medication List Aspirin EC [Ecotrin Low Dose] 162 mg PO DAILY 07/05/22 [History] NIFEdipine [Adalat CC] 30 mg PO DAILY 07/05/22 [History] Llh-Kiit-Iwaeo Acid [-U Capsule (formulary)] 1 cap PO DAILY 07/05/22 [History] Docusate [Colace] 100 mg PO DAILY 05/04/24 [History] Acetaminophen Tab [Tylenol] 650 mg PO Q6H PRN #30 tab 06/29/24 [Rx] Ibuprofen [Motrin] 600 mg PO Q6HR PRN #30 tab 06/29/24 [Rx] Follow up Appointment(s)/Referral(s): Ketty Larsen MD [STAFF PHYSICIAN] - 08/08/24 8:30 am (C/S Appointment 07-10-2024 at 1:15pm) Activity/Diet/Wound Care/Special Instructions: Instructions 1. Do not begin any exercise program for 3 weeks. 2. Do not resume sexual relations for 6 weeks or longer if uncomfortable. 3. You may take tub baths or showers at any time. 4. You may use tampons if desired after 6 weeks. 5. Keep any areas repaired with stitches clean and dry. 6. If you are not nursing, wear a good fitting, supportive bra during the day and limit fluid intake for at least 1 week to prevent breast engorgement. 7. Call the office, , within the next week to make appointment for your 6 week checkup if it has not already been made. 8. Report any of the following occurrences to the doctor promptly: a. Heavy, excessive bleeding b. Chills, fever c. Burning or frequency of urination d. Pain or redness and breasts if nursing e. Increasing pain or swelling of vulva (stitches). In addition to the above instructions, the following additional should be followed: 1. No heavy lifting or straining (exercising) until after 6 week checkup. 2. Keep abdominal incision clean and dry: You may wear a dressing if more comfortable. 3. Make office appointment for 2 weeks after delivery date. Discharge Disposition: HOME SELF-CARE
[2024-06-29 10:13] VITALS: BP 132/92; PULSE 87; TEMP 97.9
== END 2024-06-29 15:10 | disposition home or self-care (01) | DRG 540 ==
LOC: 4FBP 06:00
PROVIDERS: ADMIT Obstetrics & Gynecology; ATTEND Obstetrics & Gynecology
PROC: 10D00Z1 Extraction of Products of Conception, Low, Open Approach (ICD-10-PCS; principal; 2024-06-27 14:08)
DX: O32.4XX0 Maternal care for high head at term, not applicable or unspecified (principal); O99.824 Streptococcus B carrier state complicating childbirth; O36.63X0 Maternal care for excessive fetal growth, third trimester, not applicable or unspecified; O16.4 Unspecified maternal hypertension, complicating childbirth; Z3A.38 38 weeks gestation of pregnancy; Z37.0 Single live birth; Z79.82 Long term (current) use of aspirin; Z82.49 Family history of ischemic heart disease and other diseases of the circulatory system; Z87.891 Personal history of nicotine dependence
CPT/HCPCS: 85025; 86850; 86900; 86901